=== PATIENT | male | born 1940 | race Caucasian/White ===

== ENCOUNTER 2016-03-08 16:55 | Inpatient (IN) | payer OTHER ==
--- NOTE | 2016-03-08 17:32 | CPEKG ---
Heart Rate: 80 RR Interval: 750 P-R Interval: 144 QRSD Interval: 94 QT Interval: 392 QTC Interval: 453 P [place]: 49 QRS [place]: -37 T Wave [place]: -77 EKG Severity - ABNORMAL ECG - EKG Impression: SINUS RHYTHM EKG Impression: LEFT AXIS DEVIATION EKG Impression: NONSPECIFIC T ABNORMALITIES, DIFFUSE LEADS Electronically Signed By: Juana Beck 08-Mar-2016 21:53:05
[2016-03-08] MEDS ORDERED: NS 1,000 ML IV ONE ×2 (17:44→20:23)
[2016-03-08 17:51] LABS: % IMMATURE GRANULYOCYTES 0.7 % (0.0-1.1); ABSOLUTE IMMATURE GRANULOCYTES 0.16 10^3/uL (0.00-0.10); ADD DIFF? NO; ADD MORPH? NO; ADD SCAN? NO; ATYPICAL LYMPHOCYTE FLAG 40 (0-99); FRAGMENT RBC FLAG 0 (0-99); HEMATOCRIT 54.3 % (40.0-51.0); HEMOGLOBIN 19.8 g/dL (13.7-17.5); LEFT SHIFT FLG 10 (0-99); LIPEMIA HEMOLYSIS FLAG 90 (0-99); MEAN CELL HEMOGLOBIN 31.3 pg (27.9-34.1); MEAN CELL HEMOGLOBIN CONCENTR. 36.5 g/dL (32.4-36.7); MEAN CELL VOLUME 85.9 fL (81.5-99.8); MEAN PLATELET VOLUME 9.5 fL (8.7-11.7); PLATELET CLUMPS FLAG 10 (0-99); PLATELET COUNT 194 10^3/uL (150-400); RED BLOOD CELL COUNT 6.32 10^6/uL (4.40-6.38); RED CELL DISTRIBUTION WIDTH 14.5 % (11.5-15.2)
--- NOTE | 2016-03-08 17:51 | EDPHY ---
H & P Time Seen by Provider: 03/08/16 17:23 HPI/ROS: CHIEF COMPLAINT: rectal bleeding/colitis HISTORY OF PRESENT ILLNESS: Patient is a 75-year-old male with a history high cholesterol who presents to the emergency department with a diagnosis colitis and rectal bleeding. Patient's symptoms started last after eating lunch at the [facility]. He initially developed nausea. Later that night he developed bloody diarrhea. He has had increasing weakness over the past few days. On he went to urgent care. There he had a CT scan. This showed colitis and he was started on Cipro and Flagyl. Over the weekend he has had ongoing rectal bleeding which seems to be worsening. He has had nausea with no vomiting. He has no significant abdominal cramping or pain. Patient states that when he has episodes of rectal bleeding he has near syncopal episodes. He has stool in the bathroom floor to not faint. He has not sustained any trauma. REVIEW OF SYSTEMS: Patient is blind in his right eye. Otherwise my complete review of systems is negative except as mentioned in the HPI. Past Medical/Surgical History: Includes recently diagnosed colitis, juvenile glaucoma and high cholesterol Past surgical history: Numerous eye surgeries Social history: The patient is . He does not smoke or use alcohol. Smoking Status: Never smoked Physical Exam: Vitals noted GENERAL: No acute distress, alert. HEENT: Right eye opaque, normal pharynx, no signs of dehydration. NECK: No thyromegaly, no lymphadenopathy, supple. RESPIRATORY: Clear to auscultation bilaterally, no rales, rhonchi or wheezing. CVS: Regular rate and rhythm, no rubs, murmurs, or gallops. ABDOMEN: Soft, minimal left lower quadrant tenderness palpation with no rebound or guarding, nondistended, no organomegaly. BACK: Normal to inspection, no CVA tenderness. SKIN: Normal color, no rash, warm, dry. No pallor. EXTREMITIES: No pedal edema, no calf tenderness, no joint swelling. NEURO/PSYCH: Alert and oriented, normal mood and affect, normal motor sensory exam. Constitutional: Initial Vital Signs Temperature (C) 36.5 C 03/08/16 17:07 Heart Rate 89 03/08/16 17:07 Respiratory Rate 03/08/16 17:07 Blood Pressure 104/86 H 03/08/16 17:07 O2 Sat (%) 91 L 03/08/16 17:07 O2 Delivery Mode Room Air Allergies/Adverse Reactions: No Known Allergies Allergy (Unverified 03/08/16 17:07) Home Medications: Medication Instructions Recorded Aspirin [Aspirin 81mg (OTC)] 81 mg PO DAILY 12/19/14 Loratadine [Claritin 10 mg] 10 mg PO DAILY 12/19/14 Multivitamin [Multi-Day Vitamins] 1 each PO 12/19/14 Simvastatin [Zocor] 20 mg PO 12/19/14 Tumeric 12/19/14 Medical Decision Making ED Course/Re-evaluation: In the emergency department I discussed possible etiologies with the patient. Of note, I discussed the patient with Dr. Piña prior to patient's arrival. She recommends patient be admitted. I discussed the plan with the patient. I answered all his questions. Laboratory studies ordered. The patient was given normal saline 1 L IV for hydration. I reviewed the patient's CT imaging from 03/05/2016. This showed colitis from the cecum through the mid to distal transverse colon. Patient is an elevated white count 46912. Hematocrit is elevated 54. Chemistry panel unremarkable. Patient's coags are unremarkable. Differential Diagnosis: My differential includes but is not limited to colitis, diverticulitis, abscess , perforation, obstruction, internal hemorrhoid, external hemorrhoid, malignancy , infection - Data Points Laboratory Results: Laboratory Results 03/08/16 17:30 03/08/16 17:30 03/08/16 17:30 WBC 21.54 H 10^3/uL (3.80-9.50) RBC 6.32 10^6/uL (4.40-6.38) Hgb 19.8 H g/dL (13.7-17.5) Hct 54.3 H % (40.0-51.0) MCV 85.9 fL (81.5-99.8) MCH 31.3 pg (27.9-34.1) MCHC 36.5 g/dL (32.4-36.7) RDW 14.5 % (11.5-15.2) Plt Count 194 10^3/uL (150-400) MPV 9.5 fL (8.7-11.7) Neut % (Auto) 79.8 H % (39.3-74.2) Lymph % (Auto) 7.9 L % (15.0-45.0) [place] % (Auto) 11.4 % (4.5-13.0) Eos % (Auto) 0.0 L % (0.6-7.6) Baso % (Auto) 0.2 L % (0.3-1.7) Nucleat RBC Rel Count 0.0 % (0.0-0.2) Absolute Neuts (auto) 17.16 H 10^3/uL (1.70-6.50) Absolute Lymphs (auto) 1.71 10^3/uL (1.00-3.00) Absolute Monos (auto) 2.46 H 10^3/uL (0.30-0.80) Absolute Eos (auto) 0.00 L 10^3/uL (0.03-0.40) Absolute Basos (auto) 0.05 10^3/uL (0.02-0.10) Absolute Nucleated RBC 0.00 10^3/uL (0-0.01) Immature Gran % 0.7 % (0.0-1.1) Immature Gran # 0.16 H 10^3/uL (0.00-0.10) PT 16.3 H SEC (12.0-15.0) INR 1.31 H (0.83-1.16) APTT 24.4 SEC (23.0-38.0) Sodium 134 mEq/L (134-144) Potassium 4.1 mEq/L (3.5-5.2) Chloride 99 mEq/L (97-110) Carbon Dioxide 19 L mEq/l (22-31) Anion Gap 16 mEq/L (8-16) BUN 71 H mg/dL (7-23) Creatinine 1.4 H mg/dL (0.7-1.3) Estimated GFR 50 Glucose 145 H mg/dL (70-100) Calcium 8.7 mg/dL (8.5-10.4) Medications Given: Discontinued Medications Sodium Chloride (Ns) 1,000 mls @ 0 mls/hr IV ONCE ONE PRN Reason: Wide Open Stop: 03/08/16 17:45 Last Admin: 03/08/16 18:00 Dose: 1,000 mls Departure - Departure Disposition: [facility] Acute Clinical Impression: Hematochezia, Non-specific colitis Leukocytosis Qualifiers: Leukocytosis type: other Qualifier Code: (D72.828) Other elevated white blood cell count Condition: Good Referrals: Zohreh Loza MD [Primary Care Provider] - As per Instructions
[2016-03-08 17:56] LABS: ANION GAP 16 mEq/L (8-16); CALCIUM 8.7 mg/dL (8.5-10.4); CARBON DIOXIDE 19 mEq/l (22-31); CHLORIDE 99 mEq/L (97-110); CREATININE 1.4 mg/dL (0.7-1.3); GLOMERULAR FILTRATION RATE 50; GLUCOSE 145 mg/dL (70-100); POTASSIUM 4.1 mEq/L (3.5-5.2); SODIUM 134 mEq/L (134-144)
[2016-03-08 18:02] LABS: APTT 24.4 SEC (23.0-38.0); INR 1.31 (0.83-1.16); PROTIME(PATIENT) 16.3 SEC (12.0-15.0)
[2016-03-08] MEDS ORDERED: ACETAMINOPHEN 325 MG TAB PO PRN (20:23)
[2016-03-08] MEDS ORDERED: levOFLOXACIN 500 MG/DEXTROSE 100 ML IV SCH (20:30)
[2016-03-08] MEDS ORDERED: levOFLOXACIN 500 MG/DEXTROSE/100 ML BAG IV ONE (20:40)
--- NOTE | 2016-03-08 21:01 | GHP ---
[f rep st] HISTORY AND PHYSICAL DATE OF ADMISSION: 03/08/2016 CHIEF COMPLAINT: Bloody diarrhea. HISTORY OF PRESENT ILLNESS: This is a 75-year-old male with no significant past medical history who presented to the Emergency Department with bloody stools. The patient states that he last had a regular meal on Wednesday at lunchtime at the [facility]. Af ter eating, he said he lost his appetite and had some low-grade subjective temperatures, as well as s ome diarrhea that started on Wednesday night. On Wednesday, the nausea and diarrhea worsened. He states that whenever he would eat or drink anythi ng he would have bright red bloody stools. He feels faint with standing. He denies any chest pain or shortness of breath. He has not had this happen to him before. He was seen at [facility] on 03/05/2016, at which time stool studies were don e that were negative. A CT of the abdomen and pelvis was done at that time and that revealed colitis . He was subsequently started on Cipro and Flagyl. Since starting antibiotics, he has not improved. PAST MEDICAL HISTORY: Juvenile cataract, BPH. PAST SURGICAL HISTORY: Multiple eye surgeries. HOME MEDICATIONS: Reviewed. Refer to [facility] for details. ALLERGIES: No known drug allergies. SOCIAL HISTORY: The patient lives independently. He denies any alcohol, tobacco, or illicit drug us e. FAMILY HISTORY: Reviewed and noncontributory. REVIEW OF SYSTEMS: A comprehensive 10-point review of systems was done and was negative, except for as mentioned in the HPI. PHYSICAL EXAM: VITAL SIGNS: Blood pressure 137/91, heart rate 84, respiratory rate 16, O2 saturatio n 92% on 2 L, temperature afebrile. GENERAL: In no acute distress. HEAD: Normocephalic, atraumati c. Eyes: Left pupil is reactive to light. Right pupil is obscured by cataract. NECK: Supple. No lymphadenopathy. CARDIOVASCULAR: S1, S2. No murmurs, rubs, clicks, gallops, or JVD. No lower ext remity edema. PULMONARY: Lungs are clear. No wheezes, rales, or rhonchi. ABDOMEN: Soft, nontende r, nondistended. No guarding or rebound tenderness. Normoactive bowel sounds. No hepatosplenomegal y. EXTREMITIES: No clubbing or cyanosis. NEURO: Cranial nerves II through XII grossly intact. No focal motor or sensory deficits. SKIN: Clear. No rashes. DIAGNOSTICS: 1. WBC is 21.54, hemoglobin 19.8, hematocrit 54.3, platelets 194. INR 1.31. 2. Sodium 134, potassium 4.1, chloride 99, CO2 19, BUN 71, creatinine 1.4, glucose 145. 3. CT of the abdomen and pelvis done on 03/05/2016 revealed colitis from the cecum through the mid-t o-distal transverse colon. 4. Stool studies were negative for an infectious cause. Serology was negative for Clostridium diffi cile. ASSESSMENT AND PLAN: This is a 75-year-old male presenting with: 1. Bloody diarrhea and anorexia. Suspect bacterial colitis. Plan: I discussed the case with Dr. Renetta Giron who is on-call for GI who will see the patient in the morning. For now, will treat him saldana pportively with IV fluids. For now, will continue his antibiotics, but will change to IV Levaquin an d Flagyl. Will repeat stool studies, as well as that of ova and parasite. 2. Severe dehydration and hemoconcentration with likely secondary polycythemia. Plan: Continue wit h IV fluids and monitor. 3. Acute kidney injury, likely due to above, with elevated BUN. Plan: As per above. The patient will be admitted to the hospital under inpatient status. /[id number]/MODL
[2016-03-08] MEDS: D5W 1/2 NS W/ 20 KCl/L 1,000 ML IV SCH (21:36)
[2016-03-08] MEDS ORDERED: ZOLPIDEM TARTRATE 5 MG TAB PO ONE (22:23)
[2016-03-08] MEDS ORDERED: TAMSULOSIN HCL 0.4 MG CAP PO ONE (22:23)
[2016-03-09] MEDS: D5W 1/2 NS W/ 20 KCl/L 1,000 ML IV SCH (05:39)
[2016-03-09 08:44] LABS: ALANINE AMINOTRANSFERASE 33 IU/L (21-72); ALBUMIN 2.4 g/dL (3.5-5.0); ALKALINE PHOSPHATASE 54 IU/L (38-126); ANION GAP 9 mEq/L (8-16); ASPARTATE AMINOTRANSFERASE 28 IU/L (17-59); BILIRUBIN,TOTAL 0.9 mg/dL (0.1-1.4); CALCIUM 7.8 mg/dL (8.5-10.4); CARBON DIOXIDE 21 mEq/l (22-31); CHLORIDE 104 mEq/L (97-110); GLOMERULAR FILTRATION RATE > 60; GLUCOSE 168 mg/dL (70-100); SODIUM 134 mEq/L (134-144); TOTAL PROTEIN 4.9 g/dL (6.3-8.2)
--- NOTE | 2016-03-09 10:36 | HOSPPROG ---
Hospitalist Progress Note Assessment/Plan: 75 yo M w cataracts here w colitis, bloody diarrhea, GREGORIO GREGORIO: cr improved w IVF dc IVF colitis: seen on CT 03/05 (images interp by me) now able to eat w no immeidate diarrhea but also distended cdiff and stool cx neg 1. continue abx 2. advance to full liquids 3. add simethicone proph: hold on lmwh given bloody diarrhea leukocytosis: suspect 2/2 colonic process dispo: obs; home if tolerates full liquids, not clear that he will Subjective: no diarrhea. bloated Objective: Vital Signs Temp Pulse Resp BP Pulse Ox 36.8 C 81 18 120/83 H 94 03/09/16 08:00 03/09/16 08:00 03/09/16 08:00 03/09/16 08:00 03/09/16 08:00 Laboratory Results 03/09/16 08:17 03/08/16 03/09/16 03/10/16 05:59 05:59 05:59 Intake Total 2150 Balance 2150 PT 16.3 SEC (12.0-15.0) H 03/08/16 17:30 INR 1.31 (0.83-1.16) H 03/08/16 17:30 - Physical Exam Constitutional: no apparent distress, appears nourished Eyes: anicteric sclera, No PERRL Ears, Nose, Mouth, Throat: moist mucous membranes, hearing normal Cardiovascular: regular rate and rhythym, no murmur, rub, or gallop, systolic murmur Respiratory: no respiratory distress, no rales or rhonchi Gastrointestinal: other (distended, very hypoactive bowel sounds) Genitourinary: No hoyt in urethra Skin: warm, normal color Musculoskeletal: full muscle strength Neurologic: AAOx3 ICD10 Worksheet Patient Problems: Problems Problem Status Diagnosed Colitis Acute Hematochezia Acute Leukocytosis Acute
--- NOTE | 2016-03-09 12:49 | GCON ---
[f rep st] CONSULTATION DATE OF CONSULTATION: 03/09/2016 REFERRING PHYSICIAN: Patrick Benavidez DO REASON FOR CONSULTATION: Colitis. Dear Dr. Benavidez: Thank you very kindly for asking me to evaluate Mr. Gabriel for new onset bloody diarrhea. He has be en sick since last Wednesday when he ate at the [facility]. A few hours after eating the meal, he developed nausea and upper abdominal discomfort, along with subjective low-grade fever. He developed diarrhea that evening that progressed to be quite severe, frequent, watery, and ultimately bloody. He presented to his primary care provider who performed stool studies, which were negative through [facility] on March 05. Ultimately, a CT scan of the abdomen and pelv is was performed for further evaluation of the abdominal discomfort, diarrhea, and bleeding, which re vealed diffuse colonic thickening from the cecum to about the midtransverse colon, without colonic di stention or pericolonic abscess. There was no intraabdominal free fluid. The remaining bowel loops were unremarkable. He has been feeling weak, lightheaded, and dizzy and was admitted for further marielena luation. He has no significant previous past medical history, and, of note, he was started on ciprof loxacin and Flagyl after the CT scan findings on March 05. PAST MEDICAL HISTORY: Benign prostatic hypertrophy. Right eye juvenile cataract. Personal history of colon polyps. PAST SURGICAL HISTORY: Numerous eye surgeries on the right eye to correct the cataract. Previous co lonoscopy 2 years ago through [facility] that he says had some small polyps, but were oth erwise normal. SOCIAL HISTORY: The patient lives independently. No tobacco. No alcohol. He is retired. FAMILY HISTORY: Negative for inflammatory bowel disease. MEDICATIONS: Include recently ciprofloxacin and Flagyl. He has been placed on Levaquin and Flagyl o n hospitalization. He is receiving Phenergan, fluids, and Tylenol on an as-needed basis. ALLERGIES: None known. REVIEW OF SYSTEMS: CONSTITUTIONAL: Subjective fevers, malaise, fatigue. HEENT: No headache. 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 No difficulty swallowing. No rhinorrhea. No e pistaxis. NECK: No neck pain. PULMONARY: No cough, shortness of breath. CARDIOVASCULAR: No ches t pain or palpitations. GASTROINTESTINAL: This morning he describes feeling bloated with generalize d abdominal discomfort. He feels constipated today and denies having any bowel movements or bleeding since admission. Previous to this, he was having loose frequent bowel movements that were watery wi th small amounts of maroon-colored blood. RHEUMATOLOGIC: No joint pain or swelling. LYMPHATIC: No lymph node swelling or glandular enlargement. DERMATOLOGIC: Negative for jaundice or rash. PSYCHI ATRIC: No depression, anxiety, or insomnia. GENITOURINARY: He does report some difficulty with ful l bladder evacuation and urinary hesitancy, but this is unchanged. No dysuria or hematuria. No flan k pain. PHYSICAL EXAM: VITAL SIGNS: Blood pressure 120/83, with a heart rate of 81, oxygenation is 94% on r oom air. Temperature is 37.1, T-max 36.8 T current. GENERAL: Elderly male, in no acute distress. Alert and appropriate and able to provide his own history. HEENT: Right eye cataract. The left eye is normal. Pupil equal round and reactive. Extraocular movements intact. Sclerae anicteric. Neck supple. No jugular venous distention. No cervical adenopathy. Oropharynx is clear. Nares are nor mal without epistaxis. NECK: Supple. No jugular venous distention or carotid bruits. LUNGS: [place] r to auscultation bilaterally. CARDIOVASCULAR: Regular rate and rhythm, without murmur, rub, or gal lop. ABDOMEN: Mildly distended, somewhat tympanic centrally. Bowel sounds are hypoactive. No tend erness, rebound, guarding, ascites, or organomegaly. No herniation. No abdominal bruit. EXTREMITIE S: Normal gait and station. No joint deformity. No cyanosis or clubbing. No palmar erythema. SKI N: Warm and dry, without jaundice, rash, or lesions. NEURO: Alert to person, place, and time. Nor mal mood and affect. Gait and station are normal. Nonfocal motor exam. DATA REVIEWED: Includes a white count of 21.5, hematocrit 54.3, platelets are 194, INR 1.3 with a PT of 16.3. Sodium 134, potassium 4, chloride 104, bicarbonate 21, BUN 58, creatinine 1.02. This has improved from a BUN of 71 and a creatinine of 1.4 yesterday. AST is 28, ALT 33, alkaline phosphatase 54, total protein is 4.9, with an albumin of 2.4. C. difficile PCR on March 05 is negative. A stool culture on March 05, 2016, is negative for pathogens. Shiga toxins 1 and 2 are negative. Imaging includes a CT scan of the abdomen and pelvis on March 05, 2016. The lung bases are clear. The liver is normal. The bile ducts and gallbladder are unremarkable. The pancreas is normal. Th e spleen is absent (I did not receive a history of splenectomy). The adrenal glands and kidneys are normal. Urinary bladder is unremarkable. No free fluid in the pelvis. Small bowel loops are normal . There is inflammatory change of the cecum, ascending colon, hepatic flexure, and transverse colon without abscess. The prostate is enlarged. IMPRESSION: 1. Abdominal pain. 2. Fever. 3. Diarrhea, most likely infectious. 4. Hematochezia, likely due to infectious colitis, based on the CT imaging of thickening. 5. Abnormal CT documenting colonic thickening. 6. Dehydration. 7. Leukocytosis, likely due to infectious colitis. RECOMMENDATIONS: 1. The differential for his colitis includes infectious and inflammatory etiologies, as well as the possibility for ischemia, although this is clinically with somewhat less likely given his history. 2. Reasonable to continue antibiotics, especially if he indeed has had splenectomy. His spleen is a bsent on CT. I will need to review with Mr. Gabriel whether he has had a splenectomy, because I did not receive this history in his interview. If he has indeed had splenectomy then he is at [facility] for certain types of infectious colitis such as Salmonella. 3. I will send repeat stool studies, if he can provide them. He has not had a bowel movement since admission. I would recommend repeating both standard bacterial stool culture, E coli 0157:H7, (this was reportedly performed at the Urgent Care, although I do not have the result of those). It would b e important to verify this is negative, as antibiotics can be contraindicated in this particular ente rohemorrhagic E coli. 4. We will also repeat C difficile PCR. 5. For now, it is not unreasonable to continue antibiotics as they had been started on the , and I would recommend a total of 7 days. Obviously, these will need to be interrupted if his 0157 antig en is positive, although we may not be able to determine this currently if he is not able to provide a stool specimen. 6. I would not recommend colonoscopy to evaluate the thickening in the acute setting, as this seems to be clinically either infectious or possibly ischemic colitis and less likely an inflammatory bowel process, especially in the setting that he has had a colonoscopy 2 years ago that did not reveal inf lammatory bowel disease and was significant only for small polyps. 7. If, however, he does not improve clinically within the next several days, then a colonoscopy can be considered for assistance with diagnostic understanding of his disease. 8. IV fluid hydration. 9. He may advance his diet as tolerated. 10. Monitor CBC to show improvement in the leukocytosis. 11. Further recommendations to follow. Thank you for allowing me to be involved in his care. He is a patient in the [facility], and I will have Dr. Benoit follow up with him tomorrow. /[id number]/MODL
[2016-03-09] MEDS ORDERED: NON-FORMULARY NEW DRUG (Loratadine [Claritin 10 Mg] 10 MG) PO SCH (13:15)
[2016-03-09] MEDS: CETIRIZINE 10 MG TAB PO SCH (15:25)
[2016-03-09] MEDS: ASPIRIN 81 MG CHEWABLE TAB PO SCH ×2 (15:25→20:05)
[2016-03-09] MEDS: DUTASTERIDE 0.5 MG CAP PO SCH (20:05)
[2016-03-09] MEDS: ATORVASTATIN CALCIUM 10 MG TAB PO SCH (20:05)
[2016-03-09] MEDS: TAMSULOSIN HCL 0.4 MG CAP PO SCH (20:05)
[2016-03-09] MEDS: ZOLPIDEM TARTRATE 5 MG TAB PO PRN (20:28)
[2016-03-09] MEDS ORDERED: levOFLOXACIN 500 MG/DEXTROSE 100 ML IV SCH (21:00)
[2016-03-09] MEDS ORDERED: NON-FORMULARY NEW DRUG (Simvastatin [Simvastatin] 20 MG) PO SCH (21:00)
[2016-03-10] MEDS: CHOLECALCIFEROL VIT D3 1,000 UNITS TAB PO SCH (08:57)
[2016-03-10] MEDS: MULTIVITAMINS 1 EACH TAB PO SCH (08:57)
[2016-03-10] MEDS: ASPIRIN 81 MG CHEWABLE TAB PO SCH ×2 (08:57→20:53)
[2016-03-10] MEDS ORDERED: MULTIVITAMIN PO SCH (09:00)
[2016-03-10] MEDS: CETIRIZINE 10 MG TAB PO SCH (09:03)
[2016-03-10] MEDS ORDERED: CALCIUM CARBONATE 500 MG CHEWABLE TAB PO PRN (09:35)
[2016-03-10] MEDS: SIMETHICONE 80 MG TAB CHEW PO SCH ×4 (10:20→22:47)
--- NOTE | 2016-03-10 11:24 | HOSPPROG ---
Hospitalist Progress Note Assessment/Plan: 75 yo M w cataracts here w colitis, bloody diarrhea, GREGORIO GREGORIO: cr improved w IVF dc IVF colitis: seen on CT 03/05 now able to eat w no immeidate diarrhea but also distended cdiff and stool cx neg 1. continue abx 2. advance to full liquids 3. add simethicone still w bloating add dicyclomine proph: hold on lmwh given bloody diarrhea leukocytosis: suspect 2/2 colonic process repeat labs today no spleen on CT: denies splenectomy dispo: inpatient Subjective: drinking, no stool, minimal flatus. uncomfortable Objective: Vital Signs Temp Pulse Resp BP Pulse Ox 36.8 C 82 16 132/89 H 90 L 03/10/16 07:22 03/10/16 07:22 03/10/16 07:22 03/10/16 07:22 03/10/16 07:22 Laboratory Results 03/09/16 08:17 03/09/16 03/10/16 03/11/16 05:59 05:59 05:59 Intake Total 2150 845 Output Total 450 Balance 2150 395 PT 16.3 SEC (12.0-15.0) H 03/08/16 17:30 INR 1.31 (0.83-1.16) H 03/08/16 17:30 - Physical Exam Constitutional: no apparent distress, appears nourished Eyes: anicteric sclera, EOMI, No PERRL Ears, Nose, Mouth, Throat: moist mucous membranes, hearing normal Cardiovascular: regular rate and rhythym, no murmur, rub, or gallop, No tachycardia Respiratory: no respiratory distress, no rales or rhonchi Gastrointestinal: distension, other (improved bowel sounds from yesterday), No guarding, No rebound Genitourinary: No hoyt in urethra Skin: warm, normal color Musculoskeletal: full muscle strength, no muscle tenderness ICD10 Worksheet Patient Problems: Problems Problem Status Diagnosed Colitis Acute Hematochezia Acute Leukocytosis Acute
[2016-03-10] MEDS: DICYCLOMINE 10 MG CAP PO SCH ×3 (11:43→21:15)
[2016-03-10 12:01] LABS: ABSOLUTE NRBC COUNT 0.02 10^3/uL (0-0.01); ADD DIFF? YES; ADD MORPH? NO; ADD SCAN? NO; ATYPICAL LYMPHOCYTE FLAG 30 (0-99); FRAGMENT RBC FLAG 0 (0-99); HEMATOCRIT 49.3 % (40.0-51.0); HEMOGLOBIN 17.3 g/dL (13.7-17.5); LEFT SHIFT FLG 30 (0-99); LIPEMIA HEMOLYSIS FLAG 90 (0-99); MEAN CELL HEMOGLOBIN 31.2 pg (27.9-34.1); MEAN CELL HEMOGLOBIN CONCENTR. 35.1 g/dL (32.4-36.7); NRBC-AUTO% 0.1 % (0.0-0.2); PLATELET CLUMPS FLAG 0 (0-99); PLATELET COUNT 190 10^3/uL (150-400); RED BLOOD CELL COUNT 5.54 10^6/uL (4.40-6.38); RED CELL DISTRIBUTION WIDTH 14.2 % (11.5-15.2)
[2016-03-10 12:15] LABS: ANION GAP 9 mEq/L (8-16); CALCIUM 8.1 mg/dL (8.5-10.4); CARBON DIOXIDE 23 mEq/l (22-31); CHLORIDE 103 mEq/L (97-110); CREATININE 1.1 mg/dL (0.7-1.3); GLOMERULAR FILTRATION RATE > 60; GLUCOSE 157 mg/dL (70-100); POTASSIUM 4.1 mEq/L (3.5-5.2); SODIUM 135 mEq/L (134-144)
[2016-03-10 14:54] LABS: ECHINOCYTES 1+; HOWELL-JOLLY BODIES 1+; PLATELET ESTIMATE ADEQUATE (ADEQ)
[2016-03-10] MEDS: NS 1,000 ML IV SCH (15:37)
--- NOTE | 2016-03-10 17:09 | SOAPPROG ---
SOAP Progress Note Assessment/Plan: Assessment:Patient feels bloated, minimal stool which is not bloody today. Abdomen softly distended but nontender. Patient has not been able to produce a stool specimen for repeat analysis since admission. Taking clear liquids. Plan:Would continue to treat as a severe infectious colitis. If no improvement in bloating by tomorrow morning would get abdominal x-rays. 03/10/16 17:06 Objective: Vital Signs Temp Pulse Resp BP Pulse Ox 36.8 C 84 83 H 148/90 H 90 L 03/10/16 16:40 03/10/16 16:40 03/10/16 16:40 03/10/16 16:40 03/10/16 16:40 Laboratory Results 03/10/16 11:55 03/10/16 11:55 03/09/16 03/10/16 03/11/16 05:59 05:59 05:59 Intake Total 2150 845 Output Total 450 250 Balance 2150 395 -250 PT 16.3 SEC (12.0-15.0) H 03/08/16 17:30 INR 1.31 (0.83-1.16) H 03/08/16 17:30 ICD10 Worksheet Patient Problems: Problems Problem Status Diagnosed Colitis Acute Hematochezia Acute Leukocytosis Acute
[2016-03-10] MEDS: DUTASTERIDE 0.5 MG CAP PO SCH (20:52)
[2016-03-10] MEDS: TAMSULOSIN HCL 0.4 MG CAP PO SCH (20:53)
[2016-03-10] MEDS: ATORVASTATIN CALCIUM 10 MG TAB PO SCH (20:53)
[2016-03-10] MEDS: ZOLPIDEM TARTRATE 5 MG TAB PO PRN (22:32)
[2016-03-11] MEDS: NS 1,000 ML IV SCH (03:00)
[2016-03-11 05:02] LABS: ABSOLUTE NRBC COUNT 0.05 10^3/uL (0-0.01); ADD DIFF? YES; ADD MORPH? NO; ADD SCAN? NO; ATYPICAL LYMPHOCYTE FLAG 30 (0-99); FRAGMENT RBC FLAG 0 (0-99); HEMATOCRIT 47.8 % (40.0-51.0); HEMOGLOBIN 16.8 g/dL (13.7-17.5); LEFT SHIFT FLG 20 (0-99); LIPEMIA HEMOLYSIS FLAG 90 (0-99); MEAN CELL HEMOGLOBIN 31.3 pg (27.9-34.1); MEAN CELL HEMOGLOBIN CONCENTR. 35.1 g/dL (32.4-36.7); MEAN CELL VOLUME 89.2 fL (81.5-99.8); MEAN PLATELET VOLUME 9.7 fL (8.7-11.7); NRBC-AUTO% 0.2 % (0.0-0.2); PLATELET CLUMPS FLAG 0 (0-99); PLATELET COUNT 221 10^3/uL (150-400); RED BLOOD CELL COUNT 5.36 10^6/uL (4.40-6.38); RED CELL DISTRIBUTION WIDTH 14.7 % (11.5-15.2)
[2016-03-11 05:16] LABS: ANION GAP 6 mEq/L (8-16); CALCIUM 7.8 mg/dL (8.5-10.4); CARBON DIOXIDE 20 mEq/l (22-31); CHLORIDE 108 mEq/L (97-110); GLOMERULAR FILTRATION RATE > 60; GLUCOSE 101 mg/dL (70-100); POTASSIUM 4.2 mEq/L (3.5-5.2); SODIUM 134 mEq/L (134-144)
[2016-03-11 05:54] LABS: HOWELL-JOLLY BODIES 1+
[2016-03-11] MEDS: DICYCLOMINE 10 MG CAP PO SCH (07:19)
[2016-03-11 08:48] LABS: PLATELET ESTIMATE ADEQUATE (ADEQ)
[2016-03-11] MEDS: MULTIVITAMINS 1 EACH TAB PO SCH (09:48)
[2016-03-11] MEDS: ASPIRIN 81 MG CHEWABLE TAB PO SCH ×2 (09:48→19:48)
[2016-03-11] MEDS: SIMETHICONE 80 MG TAB CHEW PO SCH ×4 (09:48→20:05)
[2016-03-11] MEDS: CHOLECALCIFEROL VIT D3 1,000 UNITS TAB PO SCH (09:51)
[2016-03-11] MEDS: CETIRIZINE 10 MG TAB PO SCH (10:01)
--- NOTE | 2016-03-11 10:24 | HOSPPROG ---
Hospitalist Progress Note Assessment/Plan: 75 yo M w cataracts here w colitis, bloody diarrhea, GREGORIO GREGORIO: cr improved w IVF dc IVF colitis: seen on CT 03/05 now able to eat w no immeidate diarrhea but also ongoing distension and poor po intake cdiff and stool cx neg 1. continue abx 2. advance to full liquids 3. repeat cdiff 4. check lipase 5. abdominal films proph: hold on lmwh given bloody diarrhea leukocytosis: suspect 2/2 colonic process repeat labs today no spleen on CT: denies splenectomy dispo: inpatient Subjective: still w significant bloating and some pain. some flatus. d/w dr mays Objective: Vital Signs Temp Pulse Resp BP Pulse Ox 36.2 C 83 18 130/31 H 93 03/11/16 08:00 03/11/16 08:00 03/11/16 08:00 03/11/16 08:00 03/11/16 08:00 Laboratory Results 03/11/16 04:24 03/11/16 04:24 03/10/16 03/11/16 03/12/16 05:59 05:59 05:59 Intake Total 733 442 6212 Output Total 450 250 Balance 164 436 6147 PT 16.3 SEC (12.0-15.0) H 03/08/16 17:30 INR 1.31 (0.83-1.16) H 03/08/16 17:30 - Physical Exam Constitutional: no apparent distress, appears nourished Eyes: PERRL, anicteric sclera Ears, Nose, Mouth, Throat: moist mucous membranes, hearing normal Cardiovascular: regular rate and rhythym, no murmur, rub, or gallop Respiratory: no respiratory distress, no rales or rhonchi Gastrointestinal: distension, other (hypoactive but present bowel sounds), No guarding, No rebound Genitourinary: No hoyt in urethra Skin: warm, normal color Musculoskeletal: full muscle strength ICD10 Worksheet Patient Problems: Problems Problem Status Diagnosed Colitis Acute Hematochezia Acute Leukocytosis Acute
[2016-03-11] MEDS: HYDROmorphONE/DILAUDID 1 MG/ML SYR IVP PRN ×3 (12:01→19:34)
[2016-03-11] MEDS ORDERED: LORazepam 2 MG/ML INJ IVP ONE (12:27)
--- NOTE | 2016-03-11 13:18 | DX ---
Three-way abdomen series 1107 hours. History: Viral gastroenteritis with presumed ileus. Abdominal distention. Findings: Comparison to prior CT study from March 05, 2016. There is moderate gaseous distention associated with large bowel loops as well as mild gaseous disten tion of small bowel loops with air-fluid levels identified. There is no evidence of mass or free air. No significant calcifications are seen. Osseous structures appear to be intact. PA chest x-ray: There is poor inspiration with compressive changes at the lung bases. Heart size and pulmonary vasculature are normal. There is no consolidation, effusion, or pneumothorax. Impression: 1. Moderate gaseous distention of large bowel with mild gaseous distention of small bowel loops sugge stive of diffuse ileus. 2. Poor inspiration with compressive atelectatic change at the lung bases.
--- NOTE | 2016-03-11 13:48 | SOAPPROG ---
SOAP Progress Note Assessment/Plan: Assessment:Patient feels bloated, minimal stool which is not bloody today. Abdomen softly distended but nontender. Patient has not been able to produce a stool specimen for repeat analysis since admission. Taking clear liquids. Plan:Would continue to treat as a severe infectious colitis. If no improvement in bloating by tomorrow morning would get abdominal x-rays. 03/10/16 17:06 03/11/16 13:46 Patient still distended, abdominal films c/w ileus. Trace bowel sounds on exam. Agree with NG decompression. I suspect this is still all infectious in etiology , but if no improvement in next 2 days would have to consider colonoscopy. Objective: Vital Signs Temp Pulse Resp BP Pulse Ox 36.2 C 83 18 130/31 H 93 03/11/16 08:00 03/11/16 08:00 03/11/16 08:00 03/11/16 08:00 03/11/16 08:00 Laboratory Results 03/11/16 04:24 03/11/16 04:24 03/10/16 03/11/16 03/12/16 05:59 05:59 05:59 Intake Total 670 738 1945 Output Total 450 250 Balance 404 684 6650 PT 16.3 SEC (12.0-15.0) H 03/08/16 17:30 INR 1.31 (0.83-1.16) H 03/08/16 17:30 ICD10 Worksheet Patient Problems: Problems Problem Status Diagnosed Colitis Acute Hematochezia Acute Leukocytosis Acute
[2016-03-11] MEDS: DUTASTERIDE 0.5 MG CAP PO SCH (19:48)
[2016-03-11] MEDS: ATORVASTATIN CALCIUM 10 MG TAB PO SCH (19:48)
[2016-03-11] MEDS: TAMSULOSIN HCL 0.4 MG CAP PO SCH (19:48)
[2016-03-11] MEDS: ZOLPIDEM TARTRATE 5 MG TAB PO PRN (20:00)
[2016-03-12] MEDS: ASPIRIN 81 MG CHEWABLE TAB PO SCH ×2 (08:33→22:03)
[2016-03-12] MEDS: SIMETHICONE 80 MG TAB CHEW PO SCH ×4 (08:33→22:03)
[2016-03-12] MEDS: MULTIVITAMINS 1 EACH TAB PO SCH (08:33)
[2016-03-12] MEDS: CHOLECALCIFEROL VIT D3 1,000 UNITS TAB PO SCH (08:33)
[2016-03-12] MEDS: CETIRIZINE 10 MG TAB PO SCH (08:34)
--- NOTE | 2016-03-12 08:44 | HOSPPROG ---
Hospitalist Progress Note Assessment/Plan: 75 yo M w cataracts here w colitis, bloody diarrhea, GREGORIO GREGORIO: cr improved w IVF on IVF colitis: seen on CT 03/05 now able to eat w no immediate diarrhea but also ongoing distension and poor po intake cdiff and stool cx neg 1. continue abx 2. advance to full liquids 3. stool studies when he goes ileus: suspect 2/2 severe infectious appreciate GI input continue NGT elevated lipase: modestly elevated (<2xuln) suspect 2/2 abdominal process as opposed to primary problem no pain w eating proph: start LMWH leukocytosis: suspect 2/2 colonic process repeat labs today no spleen on CT: denies splenectomy dispo: inpatient Subjective: yesterday's abd film w ileus (interp by me). case d/w dr mays Objective: Vital Signs Temp Pulse Resp BP Pulse Ox 37.1 C 87 20 111/78 91 L 03/12/16 07:33 03/12/16 07:33 03/12/16 07:33 03/12/16 07:33 03/12/16 07:33 Laboratory Results 03/11/16 04:24 03/11/16 04:24 03/11/16 03/12/16 03/13/16 05:59 05:59 05:59 Intake Total 501 5455 Output Total 250 1200 100 Balance 251 4255 -100 PT 16.3 SEC (12.0-15.0) H 03/08/16 17:30 INR 1.31 (0.83-1.16) H 03/08/16 17:30 - Physical Exam Constitutional: no apparent distress, appears nourished Eyes: PERRL, anicteric sclera Ears, Nose, Mouth, Throat: moist mucous membranes, hearing normal Cardiovascular: regular rate and rhythym, no murmur, rub, or gallop Respiratory: no respiratory distress, no rales or rhonchi Gastrointestinal: distension, other (hypoactive bowel sounds. improved from yesterday), No guarding, No rebound Genitourinary: No hoyt in urethra Skin: warm, normal color Musculoskeletal: full muscle strength, no muscle tenderness Neurologic: AAOx3 ICD10 Worksheet Patient Problems: Problems Problem Status Diagnosed Colitis Acute Hematochezia Acute Leukocytosis Acute
[2016-03-12] MEDS: ENOXAPARIN 40 MG/0.4 ML SYR SC SCH (10:57)
[2016-03-12 12:09] LABS: ABSOLUTE NRBC COUNT 0.04 10^3/uL (0-0.01); ADD DIFF? YES; ADD MORPH? NO; ADD SCAN? NO; ATYPICAL LYMPHOCYTE FLAG 10 (0-99); FRAGMENT RBC FLAG 0 (0-99); HEMATOCRIT 45.4 % (40.0-51.0); HEMOGLOBIN 15.9 g/dL (13.7-17.5); LEFT SHIFT FLG 30 (0-99); LIPEMIA HEMOLYSIS FLAG 90 (0-99); MEAN CELL HEMOGLOBIN 30.9 pg (27.9-34.1); MEAN CELL VOLUME 88.3 fL (81.5-99.8); MEAN PLATELET VOLUME 10.1 fL (8.7-11.7); NRBC-AUTO% 0.2 % (0.0-0.2); PLATELET CLUMPS FLAG 10 (0-99); PLATELET COUNT 240 10^3/uL (150-400); RED BLOOD CELL COUNT 5.14 10^6/uL (4.40-6.38); RED CELL DISTRIBUTION WIDTH 14.7 % (11.5-15.2)
[2016-03-12 12:48] LABS: ACANTHOCYTES 1+; ECHINOCYTES 2+; LARGE PLATELETS PRESENT; PLATELET ESTIMATE ADEQUATE (ADEQ); TOXIC VACUOLIZATION PRESENT
[2016-03-12] MEDS: NS 1,000 ML IV SCH ×2 (13:27→22:02)
[2016-03-12 14:42] LABS: ANION GAP 9 mEq/L (8-16); CALCIUM 7.7 mg/dL (8.5-10.4); CARBON DIOXIDE 18 mEq/l (22-31); CHLORIDE 110 mEq/L (97-110); CREATININE 1.1 mg/dL (0.7-1.3); GLOMERULAR FILTRATION RATE > 60; GLUCOSE 124 mg/dL (70-100); POTASSIUM 4.6 mEq/L (3.5-5.2); SODIUM 137 mEq/L (134-144)
--- NOTE | 2016-03-12 16:53 | SOAPPROG ---
SOAP Progress Note Assessment/Plan: Assessment:Patient feels bloated, minimal stool which is not bloody today. Abdomen softly distended but nontender. Patient has not been able to produce a stool specimen for repeat analysis since admission. Taking clear liquids. Plan:Would continue to treat as a severe infectious colitis. If no improvement in bloating by tomorrow morning would get abdominal x-rays. 03/10/16 17:06 03/11/16 13:46 Patient still distended, abdominal films c/w ileus. Trace bowel sounds on exam. Agree with NG decompression. I suspect this is still all infectious in etiology , but if no improvement in next 2 days would have to consider colonoscopy. 03/12/16 16:50 Doing much better today with NG decompression, started passing flatus. Approx 300 cc drainage today. Some appetite. Still with elevated WBC but no fever. Abdomen softer with new normal bowel sounds. REC: Continue NG drainage overnight, would clamp in AM and then check residual after 4 hours. If residual is minimal would restart CL diet and see if this is tolerated. If so, could go home the following day with diet advanced slowly. Objective: Vital Signs Temp Pulse Resp BP Pulse Ox 37.2 C 83 20 146/83 H 92 03/12/16 16:00 03/12/16 16:00 03/12/16 16:00 03/12/16 16:00 03/12/16 16:00 Laboratory Results 03/12/16 11:55 03/12/16 14:20 03/11/16 03/12/16 03/13/16 05:59 05:59 05:59 Intake Total 501 5455 Output Total 250 1200 100 Balance 251 4255 -100 PT 16.3 SEC (12.0-15.0) H 03/08/16 17:30 INR 1.31 (0.83-1.16) H 03/08/16 17:30 ICD10 Worksheet Patient Problems: Problems Problem Status Diagnosed Colitis Acute Hematochezia Acute Leukocytosis Acute
[2016-03-12] MEDS: ATORVASTATIN CALCIUM 10 MG TAB PO SCH (22:03)
[2016-03-12] MEDS: DUTASTERIDE 0.5 MG CAP PO SCH (22:03)
[2016-03-12] MEDS: TAMSULOSIN HCL 0.4 MG CAP PO SCH (22:03)
[2016-03-12] MEDS: ZOLPIDEM TARTRATE 5 MG TAB PO PRN (22:36)
[2016-03-13 07:55] LABS: ABSOLUTE NRBC COUNT 0.05 10^3/uL (0-0.01); ADD DIFF? YES; ADD MORPH? NO; ADD SCAN? NO; ATYPICAL LYMPHOCYTE FLAG 0 (0-99); FRAGMENT RBC FLAG 0 (0-99); HEMATOCRIT 42.5 % (40.0-51.0); HEMOGLOBIN 14.8 g/dL (13.7-17.5); LEFT SHIFT FLG 30 (0-99); LIPEMIA HEMOLYSIS FLAG 90 (0-99); MEAN CELL HEMOGLOBIN CONCENTR. 34.8 g/dL (32.4-36.7); MEAN CELL VOLUME 89.1 fL (81.5-99.8); MEAN PLATELET VOLUME 9.3 fL (8.7-11.7); NRBC-AUTO% 0.2 % (0.0-0.2); PLATELET CLUMPS FLAG 0 (0-99); PLATELET COUNT 231 10^3/uL (150-400); RED BLOOD CELL COUNT 4.77 10^6/uL (4.40-6.38); RED CELL DISTRIBUTION WIDTH 15.1 % (11.5-15.2)
[2016-03-13 08:58] LABS: ANION GAP 7 mEq/L (8-16); CALCIUM 7.6 mg/dL (8.5-10.4); CARBON DIOXIDE 18 mEq/l (22-31); CHLORIDE 113 mEq/L (97-110); CREATININE 1.1 mg/dL (0.7-1.3); GLOMERULAR FILTRATION RATE > 60; GLUCOSE 124 mg/dL (70-100); POTASSIUM 4.2 mEq/L (3.5-5.2); SODIUM 138 mEq/L (134-144)
[2016-03-13 09:00] LABS: ECHINOCYTES 1+; PLATELET ESTIMATE ADEQUATE (ADEQ); SCHISTOCYTES 1+
[2016-03-13] MEDS: MULTIVITAMINS 1 EACH TAB PO SCH (09:20)
[2016-03-13] MEDS: CHOLECALCIFEROL VIT D3 1,000 UNITS TAB PO SCH (09:20)
[2016-03-13] MEDS: ASPIRIN 81 MG CHEWABLE TAB PO SCH ×2 (09:20→21:21)
[2016-03-13] MEDS: ENOXAPARIN 40 MG/0.4 ML SYR SC SCH (09:20)
[2016-03-13] MEDS: SIMETHICONE 80 MG TAB CHEW PO SCH ×4 (09:21→21:21)
[2016-03-13] MEDS: CETIRIZINE 10 MG TAB PO SCH (09:21)
--- NOTE | 2016-03-13 16:15 | SOAPPROG ---
SOAP Progress Note Assessment/Plan: Assessment:Patient feels bloated, minimal stool which is not bloody today. Abdomen softly distended but nontender. Patient has not been able to produce a stool specimen for repeat analysis since admission. Taking clear liquids. Plan:Would continue to treat as a severe infectious colitis. If no improvement in bloating by tomorrow morning would get abdominal x-rays. 03/10/16 17:06 03/11/16 13:46 Patient still distended, abdominal films c/w ileus. Trace bowel sounds on exam. Agree with NG decompression. I suspect this is still all infectious in etiology , but if no improvement in next 2 days would have to consider colonoscopy. 03/12/16 16:50 Doing much better today with NG decompression, started passing flatus. Approx 300 cc drainage today. Some appetite. Still with elevated WBC but no fever. Abdomen softer with new normal bowel sounds. REC: Continue NG drainage overnight, would clamp in AM and then check residual after 4 hours. If residual is minimal would restart CL diet and see if this is tolerated. If so, could go home the following day with diet advanced slowly. 03/13/16 16:06 Feels a little better today, has had flatus and bowel movements. NG tube was clamped, no residual after 4 hours. Abdomen is still distended, bowel sounds seen less active than yesterday. Tolerating a clear liquid diet but appetite is only fair. I will check abdominal films to confirm ileus is resolved. Objective: Vital Signs Temp Pulse Resp BP Pulse Ox 36.9 C 89 16 135/82 H 95 03/13/16 15:28 03/13/16 15:28 03/13/16 15:28 03/13/16 15:28 03/13/16 15:28 Laboratory Results 03/13/16 07:40 03/13/16 07:40 03/12/16 03/13/16 03/14/16 05:59 05:59 05:59 Intake Total 5455 3210 Output Total 1200 1400 300 Balance 4255 1810 -300 PT 16.3 SEC (12.0-15.0) H 03/08/16 17:30 INR 1.31 (0.83-1.16) H 03/08/16 17:30 ICD10 Worksheet Patient Problems: Problems Problem Status Diagnosed Colitis Acute Hematochezia Acute Leukocytosis Acute
--- NOTE | 2016-03-13 17:34 | DX ---
Portable 2 view abdomen series 1707 hours. History: Followup ileus. Findings: Comparison to March 11, 2016. There is persistent moderate distention of large and small bowel loops. The cecum now measures about 14 cm in diameter. There is no evidence of focal point of obstruction. No free air is seen. There is no evidence of mass or significant calcifications. NG tube tip is in the gastric body. Impression: 1. Stable moderate ileus pattern. There does appear to be increased distention of the cecum.
--- NOTE | 2016-03-13 19:44 | HOSPPROG ---
Hospitalist Progress Note Assessment/Plan: 75 yo M w cataracts here w colitis, bloody diarrhea, GREGORIO GREGORIO: cr improved w IVF on IVF colitis: seen on CT 03/05 now able to eat w no immediate diarrhea cdiff and stool cx neg 1. continue abx 2. advance to full liquids 3. stool studies when he goes ileus: suspect 2/2 severe infectious appreciate GI input continue NGT elevated lipase: modestly elevated (<2xuln) suspect 2/2 abdominal process as opposed to primary problem no pain w eating proph: start LMWH leukocytosis: suspect 2/2 colonic process repeat labs today no spleen on CT: denies splenectomy Subjective: feels better. ngt tube clamped this am. had 2 bm Objective: Vital Signs Temp Pulse Resp BP Pulse Ox 36.9 C 89 16 135/82 H 95 03/13/16 15:28 03/13/16 15:28 03/13/16 15:28 03/13/16 15:28 03/13/16 15:28 Laboratory Results 03/13/16 07:40 03/13/16 07:40 03/12/16 03/13/16 03/14/16 05:59 05:59 05:59 Intake Total 5455 3210 1600 Output Total 1200 1400 300 Balance 4255 1810 1300 PT 16.3 SEC (12.0-15.0) H 03/08/16 17:30 INR 1.31 (0.83-1.16) H 03/08/16 17:30 - Physical Exam Constitutional: no apparent distress, appears nourished, not in pain Ears, Nose, Mouth, Throat: moist mucous membranes Respiratory: no respiratory distress Gastrointestinal: soft, non-tender abdomen, distension, other (decreased bs) Skin: warm Neurologic: AAOx3 Psychiatric: interacting appropriately, not anxious, not encephalopathic, thought process linear ICD10 Worksheet Patient Problems: Problems Problem Status Diagnosed Colitis Acute Hematochezia Acute Leukocytosis Acute
[2016-03-13] MEDS: TAMSULOSIN HCL 0.4 MG CAP PO SCH (21:21)
[2016-03-13] MEDS: NS 1,000 ML IV SCH (21:21)
[2016-03-13] MEDS: DUTASTERIDE 0.5 MG CAP PO SCH (21:22)
[2016-03-13] MEDS: ATORVASTATIN CALCIUM 10 MG TAB PO SCH (21:22)
[2016-03-13] MEDS: ZOLPIDEM TARTRATE 5 MG TAB PO PRN (21:27)
[2016-03-14] MEDS: SIMETHICONE 80 MG TAB CHEW PO SCH ×4 (09:56→21:03)
[2016-03-14] MEDS: MULTIVITAMINS 1 EACH TAB PO SCH (09:56)
[2016-03-14] MEDS: CHOLECALCIFEROL VIT D3 1,000 UNITS TAB PO SCH (09:56)
[2016-03-14] MEDS: ASPIRIN 81 MG CHEWABLE TAB PO SCH ×2 (09:57→21:03)
[2016-03-14] MEDS: ENOXAPARIN 40 MG/0.4 ML SYR SC SCH (09:57)
[2016-03-14] MEDS: CETIRIZINE 10 MG TAB PO SCH (09:57)
--- NOTE | 2016-03-14 15:16 | HOSPPROG ---
Hospitalist Progress Note Assessment/Plan: 75 yo M w cataracts here w colitis, bloody diarrhea, GREGORIO GREGORIO: cr improved w IVF on IVF colitis: seen on CT 03/05 now able to eat w no immediate diarrhea cont abx ileus: suspect 2/2 severe infectious appreciate GI input get another xrau - if better dc ngt and eat elevated lipase: modestly elevated (<2xuln) suspect 2/2 abdominal process as opposed to primary problem no pain w eating proph: start LMWH leukocytosis: suspect 2/2 colonic process repeat labs tomorrow no spleen on CT: denies splenectomy Subjective: feels a lot better. had bm, passing gas Objective: Vital Signs Temp Pulse Resp BP Pulse Ox 36.4 C 81 18 140/76 H 93 03/14/16 08:00 03/14/16 08:00 03/14/16 08:00 03/14/16 08:00 03/14/16 08:00 Laboratory Results 03/13/16 07:40 03/13/16 07:40 03/13/16 03/14/16 03/15/16 05:59 05:59 05:59 Intake Total 3210 2747 Output Total 1400 300 0 Balance 1810 2447 0 PT 16.3 SEC (12.0-15.0) H 03/08/16 17:30 INR 1.31 (0.83-1.16) H 03/08/16 17:30 - Physical Exam Constitutional: no apparent distress, appears nourished, not in pain Eyes: anicteric sclera, EOMI Ears, Nose, Mouth, Throat: moist mucous membranes, hearing normal, ears appear normal Cardiovascular: regular rate and rhythym, no murmur, rub, or gallop Respiratory: no respiratory distress Gastrointestinal: normoactive bowel sounds (more bowel sounds), soft, non- tender abdomen, distension, other, No tenderness Skin: warm Neurologic: AAOx3 Psychiatric: interacting appropriately, not anxious, not encephalopathic, thought process linear ICD10 Worksheet Patient Problems: Problems Problem Status Diagnosed Colitis Acute Hematochezia Acute Leukocytosis Acute
--- NOTE | 2016-03-14 16:41 | DX ---
Two-view abdomen series 1607 hour. History: Followup ileus. Findings: Comparison to March 13, 2016. NG tube has been pulled back slightly. The sidehole is just above the GE junction. The tip of the NG tube is in the gastric fundus. There is slight decrease in gaseous distention of dilated loops of lar ge and small bowel. Air-fluid levels are once again identified in the midabdomen. No free air is seen . No masses are evident. Osseous structures are unchanged. Impression: 1. Slight decrease in gaseous distention of large and small bowel. 2. NG tube has been pulled back slightly with the tip in the gastric fundus.
[2016-03-14] MEDS ORDERED: MELATONIN 3 MG TAB PO PRN (20:15)
[2016-03-14] MEDS: ATORVASTATIN CALCIUM 10 MG TAB PO SCH (21:02)
[2016-03-14] MEDS: DUTASTERIDE 0.5 MG CAP PO SCH (21:04)
[2016-03-14] MEDS: TAMSULOSIN HCL 0.4 MG CAP PO SCH (21:06)
[2016-03-15] MEDS: ONDANSETRON 4 MG/2 ML VIAL IVP PRN (01:07)
[2016-03-15 02:28] LABS: FECES RBC 1+ (NONE SEEN); FECES WBC RARE (NONE SEEN)
[2016-03-15] MEDS: PROMETHAZINE HCL 25 MG/ML VIAL IVP PRN ×2 (03:14→21:02)
[2016-03-15] MEDS: ENOXAPARIN 40 MG/0.4 ML SYR SC SCH (09:02)
[2016-03-15] MEDS: MULTIVITAMINS 1 EACH TAB PO SCH (09:03)
[2016-03-15] MEDS: ASPIRIN 81 MG CHEWABLE TAB PO SCH ×2 (09:03→20:41)
[2016-03-15] MEDS: CHOLECALCIFEROL VIT D3 1,000 UNITS TAB PO SCH (09:03)
[2016-03-15] MEDS: SIMETHICONE 80 MG TAB CHEW PO SCH ×4 (09:03→20:41)
[2016-03-15] MEDS: CETIRIZINE 10 MG TAB PO SCH (09:03)
--- NOTE | 2016-03-15 14:32 | HOSPPROG ---
Hospitalist Progress Note Assessment/Plan: 75 yo M w cataracts here w colitis, bloody diarrhea, GREGORIO GREGORIO: cr improved w IVF on IVF colitis: seen on CT 03/05 now able to eat w no immediate diarrhea cont abx ileus: suspect 2/2 severe infectious appreciate GI input NG tube DC. Will advance diet slowly recheck plain film in the morning elevated lipase: modestly elevated (<2xuln) suspect 2/2 abdominal process as opposed to primary problem no pain w eating proph: start LMWH leukocytosis: suspect 2/2 colonic process repeat labs tomorrow no spleen on CT: denies splenectomy Subjective: had syncopal episode overnight while going to the bathroom. He has had vasovagal episodes like this in the past. He is tolerating full liquids well although appetite decreased. Is having bowel movements. Objective: Vital Signs Temp Pulse Resp BP Pulse Ox 37.2 C 78 18 121/83 H 93 03/15/16 12:37 03/15/16 12:37 03/15/16 12:37 03/15/16 12:37 03/15/16 12:37 Laboratory Results 03/13/16 07:40 03/13/16 07:40 03/14/16 03/15/16 03/16/16 05:59 05:59 05:59 Intake Total 2747 1400 Output Total 300 350 Balance 2447 1050 PT 16.3 SEC (12.0-15.0) H 03/08/16 17:30 INR 1.31 (0.83-1.16) H 03/08/16 17:30 - Physical Exam Constitutional: no apparent distress, appears nourished, not in pain Eyes: anicteric sclera, EOMI Ears, Nose, Mouth, Throat: moist mucous membranes Respiratory: no respiratory distress Gastrointestinal: normoactive bowel sounds, soft, non-tender abdomen, distension Neurologic: AAOx3 Psychiatric: interacting appropriately, not anxious, not encephalopathic, thought process linear ICD10 Worksheet Patient Problems: Problems Problem Status Diagnosed Colitis Acute Hematochezia Acute Leukocytosis Acute
[2016-03-15 16:19] LABS: ABSOLUTE NRBC COUNT 0.04 10^3/uL (0-0.01); ADD DIFF? YES; ADD MORPH? NO; ADD SCAN? NO; ATYPICAL LYMPHOCYTE FLAG 0 (0-99); FRAGMENT RBC FLAG 0 (0-99); HEMATOCRIT 39.3 % (40.0-51.0); HEMOGLOBIN 13.9 g/dL (13.7-17.5); LEFT SHIFT FLG 10 (0-99); LIPEMIA HEMOLYSIS FLAG 90 (0-99); MEAN CELL HEMOGLOBIN 31.2 pg (27.9-34.1); MEAN CELL HEMOGLOBIN CONCENTR. 35.4 g/dL (32.4-36.7); MEAN CELL VOLUME 88.3 fL (81.5-99.8); NRBC-AUTO% 0.2 % (0.0-0.2); PLATELET CLUMPS FLAG 0 (0-99); PLATELET COUNT 258 10^3/uL (150-400); RED BLOOD CELL COUNT 4.45 10^6/uL (4.40-6.38); RED CELL DISTRIBUTION WIDTH 15.7 % (11.5-15.2)
[2016-03-15 16:31] LABS: ANION GAP 5 mEq/L (8-16); CALCIUM 7.6 mg/dL (8.5-10.4); CARBON DIOXIDE 21 mEq/l (22-31); CHLORIDE 111 mEq/L (97-110); CREATININE 1.1 mg/dL (0.7-1.3); GLOMERULAR FILTRATION RATE > 60; GLUCOSE 124 mg/dL (70-100); POTASSIUM 3.8 mEq/L (3.5-5.2); SODIUM 137 mEq/L (134-144)
[2016-03-15 17:25] LABS: O/P CONCENTRATION NONE SEEN (NONE SEEN)
[2016-03-15 17:27] LABS: O/P TRICHROME NONE SEEN (NONE SEEN)
[2016-03-15 18:19] LABS: MICROCYTES 1+; PLATELET ESTIMATE ADEQUATE (ADEQ); SCHISTOCYTES 1+
[2016-03-15 18:20] LABS: MACROCYTES 1+; POLYCHROMASIA 1+
[2016-03-15] MEDS: TAMSULOSIN HCL 0.4 MG CAP PO SCH (20:41)
[2016-03-15] MEDS: DUTASTERIDE 0.5 MG CAP PO SCH (20:41)
[2016-03-15] MEDS: ATORVASTATIN CALCIUM 10 MG TAB PO SCH (20:41)
--- NOTE | 2016-03-16 08:18 | SOAPPROG ---
SOAP Progress Note Assessment/Plan: Assessment:Patient feels bloated, minimal stool which is not bloody today. Abdomen softly distended but nontender. Patient has not been able to produce a stool specimen for repeat analysis since admission. Taking clear liquids. Plan:Would continue to treat as a severe infectious colitis. If no improvement in bloating by tomorrow morning would get abdominal x-rays. 03/10/16 17:06 03/11/16 13:46 Patient still distended, abdominal films c/w ileus. Trace bowel sounds on exam. Agree with NG decompression. I suspect this is still all infectious in etiology , but if no improvement in next 2 days would have to consider colonoscopy. 03/12/16 16:50 Doing much better today with NG decompression, started passing flatus. Approx 300 cc drainage today. Some appetite. Still with elevated WBC but no fever. Abdomen softer with new normal bowel sounds. REC: Continue NG drainage overnight, would clamp in AM and then check residual after 4 hours. If residual is minimal would restart CL diet and see if this is tolerated. If so, could go home the following day with diet advanced slowly. 03/13/16 16:06 Feels a little better today, has had flatus and bowel movements. NG tube was clamped, no residual after 4 hours. Abdomen is still distended, bowel sounds seen less active than yesterday. Tolerating a clear liquid diet but appetite is only fair. I will check abdominal films to confirm ileus is resolved. 03/16/16 08:16 Still distended but tolerating liquid diet and passing semiformed stool. Minimal improvement in cecal distension and WBC over weekend. Abdomen is distended but soft with normal to hyperactive bowel sounds. Will be getting abdominal films today, if no significant improvemtn I would order CT of abd to compare with previous study. If colitis still significant I will proceed to colonoscopy. Objective: Vital Signs Temp Pulse Resp BP Pulse Ox 37.0 C 71 20 122/77 H 92 03/16/16 07:35 03/16/16 07:35 03/16/16 07:35 03/16/16 07:35 03/16/16 07:35 Laboratory Results 03/15/16 16:05 03/15/16 16:05 03/15/16 03/16/16 03/17/16 05:59 05:59 05:59 Intake Total 1400 1000 Output Total 350 1050 Balance 1050 -50 PT 16.3 SEC (12.0-15.0) H 03/08/16 17:30 INR 1.31 (0.83-1.16) H 03/08/16 17:30 ICD10 Worksheet Patient Problems: Problems Problem Status Diagnosed Colitis Acute Hematochezia Acute Leukocytosis Acute
[2016-03-16] MEDS: CHOLECALCIFEROL VIT D3 1,000 UNITS TAB PO SCH (09:45)
[2016-03-16] MEDS: CETIRIZINE 10 MG TAB PO SCH (09:45)
[2016-03-16] MEDS: SIMETHICONE 80 MG TAB CHEW PO SCH ×4 (09:45→21:41)
[2016-03-16] MEDS: ASPIRIN 81 MG CHEWABLE TAB PO SCH ×2 (09:45→21:41)
[2016-03-16] MEDS: MULTIVITAMINS 1 EACH TAB PO SCH (09:45)
[2016-03-16] MEDS: ENOXAPARIN 40 MG/0.4 ML SYR SC SCH (09:54)
--- NOTE | 2016-03-16 12:05 | DX ---
Two-view abdomen series 1139 hours. History: Colitis and rectal bleeding. Possible small bowel distraction. Findings: Comparison to March 14, 2016. There is stable moderate distention of large and small bowel loops. Air-fluid levels are once again n oted at the midabdomen level. There is no free air. There is stable distention of the cecum measuring 12.6 cm in diameter. Osseous structures are unchanged. Impression: 1. Persistent stable gaseous distention of large and small bowel loops suggestive of ileus.
--- NOTE | 2016-03-16 12:14 | HOSPPROG ---
Hospitalist Progress Note Assessment/Plan: 75 yo M w cataracts here w colitis, bloody diarrhea, GREGORIO colitis: seen on CT 03/05 on day 7 of antibiotics ileus: suspect 2/2 severe infectious but somewhat odd presentation continued dilation of cecum with ileus pattern on x-ray will get CT scan of the abdomen pelvis possible colonoscopy discussed with Gastroenterology elevated lipase: modestly elevated (<2xuln) suspect 2/2 abdominal process as opposed to primary problem no pain w eating GREGORIO: cr improved w IVF proph: start LMWH leukocytosis: still somewhat elevated Subjective: feels about the same. continued feeling of bloating. Having some bowel movements. Is tolerating full liquid diet. Objective: Vital Signs Temp Pulse Resp BP Pulse Ox 37.0 C 71 20 122/77 H 92 03/16/16 07:35 03/16/16 07:35 03/16/16 07:35 03/16/16 07:35 03/16/16 07:35 Laboratory Results 03/15/16 16:05 03/15/16 16:05 03/15/16 03/16/16 03/17/16 05:59 05:59 05:59 Intake Total 1400 1000 Output Total 350 1050 Balance 1050 -50 PT 16.3 SEC (12.0-15.0) H 03/08/16 17:30 INR 1.31 (0.83-1.16) H 03/08/16 17:30 X-ray personally viewed interpreted shows no change in ileus with dilated cecum discussed with Dr. Benoit - Physical Exam Constitutional: no apparent distress, appears nourished, not in pain Eyes: anicteric sclera, EOMI Ears, Nose, Mouth, Throat: moist mucous membranes, hearing normal Cardiovascular: regular rate and rhythym, no murmur, rub, or gallop Respiratory: no respiratory distress Gastrointestinal: soft, non-tender abdomen, no palpable masses, distension, other ( decreased bowel sounds) Skin: warm Neurologic: AAOx3 Psychiatric: interacting appropriately, not anxious, not encephalopathic, thought process linear ICD10 Worksheet Patient Problems: Problems Problem Status Diagnosed Colitis Acute Hematochezia Acute Leukocytosis Acute
[2016-03-16] MEDS ORDERED: IOPAMIDOL (ISOVUE-300) 50 ML VIAL IV ONE (14:04)
--- NOTE | 2016-03-16 15:49 | CT ---
CT Scan of the Abdomen and Pelvis (With Contrast) 1426 hours History: Persistent ileus and cecal distention. Technique: Axial computed tomographic images of the abdomen and pelvis were obtained with the unevent ful intravenous administration of 90 mL Isovue-300 contrast. Oral contrast was also administered. Caro ges were reviewed in multiple planes. Dose reduction techniques were utilized. Comparison to prior CT study of March 05, 2016. CT Abdomen and Pelvis Findings: Lung bases: There has been development of bibasilar pleural effusions mild to moderate on the left an d mild on the right with adjacent compressive atelectatic change. Liver: There is a small cyst along anterior aspect left lobe liver medial segment measuring 33 x 15 m m. No significant liver lesion is seen.. Spleen: Previous splenectomy. Gallbladder and Bile Ducts: Normal. Pancreas: Normal. Adrenals: Normal. Kidneys: No obstruction or solid masses. Abdominal Aorta: There are some scattered calcified plaques involving the abdominal aorta with loss o f distal tapering and some mural thrombus distally but no aneurysm. Pelvic structures: The prostate is moderately enlarged measuring 6.8 x 5.5 x 5.6 cm. There is no sign ificant pelvic mass or lymphadenopathy. Bladder: Normal. Bowel Loops: There is moderate thickening associated with the descending colon from just below the s plenic flexure to the junction with the sigmoid. The remainder of the bowel loops within the abdomen and pelvis are normal in thickness. The previously visualized thickening of the cecum and ascending c olon has resolved. Gas is present within mildly prominent large and small bowel compatible with under lying ileus. The large bowel does appear to be somewhat patulous anteriorly. There is no ascites or retroperitoneal lymphadenopathy. There is mild hiatal hernia noted. Skeletal system: Vertebral body heights are well-maintained. There are no significant lytic or scler otic osseous lesions. Impression: 1. Development of thickening of the descending colon compatible with colitis either from infectious o r inflammatory process. The previously visualized thickening of the ascending colon has resolved. 2. Development of bibasilar pleural effusions mild to moderate on the left and mild on the right with adjacent compressive atelectatic change. 3. Incidental cyst within the left lobe liver medial segment anteriorly. 4. Enlarged prostate. 5. Ileus suspected with gas present in large and small bowel loops. 6. Small hiatal hernia.
[2016-03-16] MEDS ORDERED: GOLYTELY 4000 ML BTL PO ONE ×2 (15:57→18:30)
--- NOTE | 2016-03-16 16:00 | SOAPPROG ---
SOAP Progress Note Assessment/Plan: Assessment:Patient feels bloated, minimal stool which is not bloody today. Abdomen softly distended but nontender. Patient has not been able to produce a stool specimen for repeat analysis since admission. Taking clear liquids. Plan:Would continue to treat as a severe infectious colitis. If no improvement in bloating by tomorrow morning would get abdominal x-rays. 03/10/16 17:06 03/11/16 13:46 Patient still distended, abdominal films c/w ileus. Trace bowel sounds on exam. Agree with NG decompression. I suspect this is still all infectious in etiology , but if no improvement in next 2 days would have to consider colonoscopy. 03/12/16 16:50 Doing much better today with NG decompression, started passing flatus. Approx 300 cc drainage today. Some appetite. Still with elevated WBC but no fever. Abdomen softer with new normal bowel sounds. REC: Continue NG drainage overnight, would clamp in AM and then check residual after 4 hours. If residual is minimal would restart CL diet and see if this is tolerated. If so, could go home the following day with diet advanced slowly. 03/13/16 16:06 Feels a little better today, has had flatus and bowel movements. NG tube was clamped, no residual after 4 hours. Abdomen is still distended, bowel sounds seen less active than yesterday. Tolerating a clear liquid diet but appetite is only fair. I will check abdominal films to confirm ileus is resolved. 03/16/16 08:16 Still distended but tolerating liquid diet and passing semiformed stool. Minimal improvement in cecal distension and WBC over weekend. Abdomen is distended but soft with normal to hyperactive bowel sounds. Will be getting abdominal films today, if no significant improvemtn I would order CT of abd to compare with previous study. If colitis still significant I will proceed to colonoscopy. 03/16/16 15:59 CT shows left sided colitis, which is new, and resolution of right sided colitis. This is unusual. I will schedule colonoscopy for tomorrow at 714. Objective: Vital Signs Temp Pulse Resp BP Pulse Ox 37.1 C 88 18 127/69 H 92 03/16/16 12:11 03/16/16 12:11 03/16/16 12:11 03/16/16 12:11 03/16/16 12:11 Laboratory Results 03/15/16 16:05 03/15/16 16:05 03/15/16 03/16/16 03/17/16 05:59 05:59 05:59 Intake Total 1400 1000 Output Total 350 1050 Balance 1050 -50 PT 16.3 SEC (12.0-15.0) H 03/08/16 17:30 INR 1.31 (0.83-1.16) H 03/08/16 17:30 ICD10 Worksheet Patient Problems: Problems Problem Status Diagnosed Colitis Acute Hematochezia Acute Leukocytosis Acute
[2016-03-16] MEDS: TAMSULOSIN HCL 0.4 MG CAP PO SCH (21:41)
[2016-03-16] MEDS: ATORVASTATIN CALCIUM 10 MG TAB PO SCH (21:41)
[2016-03-16] MEDS: DUTASTERIDE 0.5 MG CAP PO SCH (21:41)
[2016-03-17] MEDS: PROMETHAZINE HCL 25 MG/ML VIAL IVP PRN ×2 (01:18→22:29)
[2016-03-17 06:22] LABS: % IMMATURE GRANULYOCYTES 1.5 % (0.0-1.1); ABSOLUTE IMMATURE GRANULOCYTES 0.26 10^3/uL (0.00-0.10); ABSOLUTE NRBC COUNT 0.02 10^3/uL (0-0.01); ADD DIFF? NO; ADD MORPH? NO; ADD SCAN? NO; ATYPICAL LYMPHOCYTE FLAG 0 (0-99); FRAGMENT RBC FLAG 20 (0-99); HEMOGLOBIN 13.9 g/dL (13.7-17.5); LEFT SHIFT FLG 10 (0-99); LIPEMIA HEMOLYSIS FLAG 90 (0-99); MEAN CELL HEMOGLOBIN 31.4 pg (27.9-34.1); MEAN CELL HEMOGLOBIN CONCENTR. 35.6 g/dL (32.4-36.7); MEAN PLATELET VOLUME 9.9 fL (8.7-11.7); NRBC-AUTO% 0.1 % (0.0-0.2); PLATELET CLUMPS FLAG 0 (0-99); PLATELET COUNT 274 10^3/uL (150-400); RED BLOOD CELL COUNT 4.43 10^6/uL (4.40-6.38); RED CELL DISTRIBUTION WIDTH 15.8 % (11.5-15.2)
[2016-03-17 06:50] LABS: ALANINE AMINOTRANSFERASE 43 IU/L (21-72); ALBUMIN 1.8 g/dL (3.5-5.0); ALKALINE PHOSPHATASE 57 IU/L (38-126); ANION GAP 7 mEq/L (8-16); ASPARTATE AMINOTRANSFERASE 55 IU/L (17-59); BILIRUBIN,TOTAL 0.7 mg/dL (0.1-1.4); CALCIUM 7.2 mg/dL (8.5-10.4); CARBON DIOXIDE 21 mEq/l (22-31); CHLORIDE 110 mEq/L (97-110); CREATININE 0.9 mg/dL (0.7-1.3); GLOMERULAR FILTRATION RATE > 60; GLUCOSE 81 mg/dL (70-100); POTASSIUM 3.4 mEq/L (3.5-5.2); SODIUM 138 mEq/L (134-144); TOTAL PROTEIN 4.2 g/dL (6.3-8.2)
[2016-03-17] MEDS ORDERED: PROPOFOL 200 MG/20 ML VIAL ONE ×2 (07:10)
[2016-03-17] MEDS ORDERED: LIDOCAINE 2% 5 ML SDV ONE (07:41)
--- NOTE | 2016-03-17 07:41 | SOAPPROG ---
SOAP Progress Note Assessment/Plan: Assessment:Patient feels bloated, minimal stool which is not bloody today. Abdomen softly distended but nontender. Patient has not been able to produce a stool specimen for repeat analysis since admission. Taking clear liquids. Plan:Would continue to treat as a severe infectious colitis. If no improvement in bloating by tomorrow morning would get abdominal x-rays. 03/10/16 17:06 03/11/16 13:46 Patient still distended, abdominal films c/w ileus. Trace bowel sounds on exam. Agree with NG decompression. I suspect this is still all infectious in etiology , but if no improvement in next 2 days would have to consider colonoscopy. 03/12/16 16:50 Doing much better today with NG decompression, started passing flatus. Approx 300 cc drainage today. Some appetite. Still with elevated WBC but no fever. Abdomen softer with new normal bowel sounds. REC: Continue NG drainage overnight, would clamp in AM and then check residual after 4 hours. If residual is minimal would restart CL diet and see if this is tolerated. If so, could go home the following day with diet advanced slowly. 03/13/16 16:06 Feels a little better today, has had flatus and bowel movements. NG tube was clamped, no residual after 4 hours. Abdomen is still distended, bowel sounds seen less active than yesterday. Tolerating a clear liquid diet but appetite is only fair. I will check abdominal films to confirm ileus is resolved. 03/16/16 08:16 Still distended but tolerating liquid diet and passing semiformed stool. Minimal improvement in cecal distension and WBC over weekend. Abdomen is distended but soft with normal to hyperactive bowel sounds. Will be getting abdominal films today, if no significant improvemtn I would order CT of abd to compare with previous study. If colitis still significant I will proceed to colonoscopy. 03/16/16 15:59 CT shows left sided colitis, which is new, and resolution of right sided colitis. This is unusual. I will schedule colonoscopy for tomorrow at 0715. 03/17/16 07:38 CLN reveals mild colitis pattern in descending colon, but no inflammation in last 30 cm of colon. Unable to reach AC due to issues with distension and anesthesia. Biopsies taken. Colitis pattern does not look like any obvious UC or Crohn or pseudomembranous colitis (C. diff 12/11 negative). Ischemic colitis not suggested on imaging. I will stop his antibiotics and put him on solumedrol 60 mg bid while awaiting biopsy results. Objective: Vital Signs Temp Pulse Resp BP Pulse Ox 36.9 C 75 16 125/79 H 92 03/17/16 06:15 03/17/16 06:15 03/17/16 06:15 03/17/16 06:15 03/17/16 06:15 Laboratory Results 03/17/16 06:00 03/17/16 06:00 03/16/16 03/17/16 03/18/16 05:59 05:59 05:59 Intake Total 1000 Output Total 1050 950 Balance -50 -950 PT 16.3 SEC (12.0-15.0) H 03/08/16 17:30 INR 1.31 (0.83-1.16) H 03/08/16 17:30 ICD10 Worksheet Patient Problems: Problems Problem Status Diagnosed Colitis Acute Hematochezia Acute Leukocytosis Acute
[2016-03-17] MEDS ORDERED: LR 1,000 ML IV ONE (08:02)
[2016-03-17] MEDS ORDERED: LIDOCAINE 1% 5 ML SDV ID PRN (08:02)
[2016-03-17] MEDS: SIMETHICONE 80 MG TAB CHEW PO SCH ×4 (09:52→20:40)
[2016-03-17] MEDS: MULTIVITAMINS 1 EACH TAB PO SCH (09:52)
[2016-03-17] MEDS: methylPREDNISolone SOD SUCC 125 MG/2 ML VIAL IVP SCH ×2 (09:52→20:41)
[2016-03-17] MEDS: CETIRIZINE 10 MG TAB PO SCH (09:52)
[2016-03-17] MEDS: CHOLECALCIFEROL VIT D3 1,000 UNITS TAB PO SCH (09:52)
[2016-03-17] MEDS: ASPIRIN 81 MG CHEWABLE TAB PO SCH ×2 (09:52→20:40)
[2016-03-17] MEDS: ENOXAPARIN 40 MG/0.4 ML SYR SC SCH (09:53)
--- NOTE | 2016-03-17 11:18 | GPN ---
[f rep st] PROCEDURE NOTE PROCEDURE: Colonoscopy with biopsies. INDICATIONS: Mr. Gabriel is a 75-year-old male who was admitted with what was suspected to be infectious colitis. He has developed issues with ileus and pseudo obstruction. A CAT scan done prior to admission showed ascending colon inflammation. CAT scan repeated yesterday shows descending colon inflammation and clearance of the ascending colon inflammation. Colonoscopy is being performed to evaluate. Of note, stool cultures have been negative and repeat C. diff. has been negative. DESCRIPTION OF PROCEDURE: After proper consent was obtained, the patient was placed in the left lateral decubitus position, received IV general anesthesia. The colonoscope was introduced through the anus and rectum, up the left colon, across the transverse colon. The ascending colon could not be intubated due to distention and anesthesiology issues including near aspiration. However, since the ascending colon looked normal on CT scan, it was not paramount that I intubate that area. A nondescript colitis pattern was noted from approximately 30 cm to the distal transverse colon. This did not appear obviously to be ulcerative colitis, Crohn 's disease, ischemic colitis or pseudomembranous colitis. It was biopsied. No other findings are noted. At this point, the instrument was removed. The patient tolerated the procedure well. Was returned to recovery in stable condition. RECOMMENDATIONS: 1. Since infection is no longer likely. I will stop this patient's antibiotics. 2. This colitis might represent a post infectious colitis. I will start the patient on low-dose Solu-Medrol to cover that possibility. 3. I will follow up on the biopsy report and recommend accordingly. /[id number]/MODL MTDD
--- NOTE | 2016-03-17 16:57 | HOSPPROG ---
Hospitalist Progress Note Assessment/Plan: 75 yo M w cataracts here w colitis, bloody diarrhea, GREGORIO colitis: seen on CT 03/05 colonoscopy today showed persistent colitis which did not look infectious GI has stops antibiotics and started steroids awaiting biopsy ileus: suspect 2/2 severe infectious but somewhat odd presentation continued dilation of cecum with ileus pattern on x-ray CT scan yesterday showed improvement of dilation patient is feeling better, passing gas and having bowel movements - will advance diet elevated lipase: modestly elevated (<2xuln) suspect 2/2 abdominal process as opposed to primary problem no pain w eating GREGORIO: cr improved w IVF proph: start LMWH leukocytosis: still somewhat elevated, follow Subjective: feels a lot better than yesterday. Objective: Vital Signs Temp Pulse Resp BP Pulse Ox 36.8 C 74 18 123/68 H 91 L 03/17/16 11:43 03/17/16 11:43 03/17/16 11:43 03/17/16 11:43 03/17/16 11:43 Microbiology 03/15/16 00:55 Stool Culture - Final Stool Laboratory Results 03/17/16 06:00 03/17/16 06:00 03/16/16 03/17/16 03/18/16 05:59 05:59 05:59 Intake Total 1000 1580 Output Total 1050 950 250 Balance -50 -950 1330 PT 16.3 SEC (12.0-15.0) H 03/08/16 17:30 INR 1.31 (0.83-1.16) H 03/08/16 17:30 - Physical Exam Constitutional: no apparent distress, appears nourished, not in pain Eyes: anicteric sclera, EOMI Ears, Nose, Mouth, Throat: moist mucous membranes Cardiovascular: regular rate and rhythym Gastrointestinal: normoactive bowel sounds, soft, non-tender abdomen, no palpable masses, distension ( Better) Skin: warm Neurologic: AAOx3 Psychiatric: interacting appropriately, not anxious, not encephalopathic, thought process linear ICD10 Worksheet Patient Problems: Problems Problem Status Diagnosed Colitis Acute Hematochezia Acute Leukocytosis Acute
[2016-03-17] MEDS: DUTASTERIDE 0.5 MG CAP PO SCH (20:40)
[2016-03-17] MEDS: ATORVASTATIN CALCIUM 10 MG TAB PO SCH (20:40)
[2016-03-17] MEDS: TAMSULOSIN HCL 0.4 MG CAP PO SCH (20:40)
[2016-03-18] MEDS: ONDANSETRON 4 MG/2 ML VIAL IVP PRN (05:53)
[2016-03-18 05:55] LABS: % IMMATURE GRANULYOCYTES 1.5 % (0.0-1.1); ABSOLUTE IMMATURE GRANULOCYTES 0.26 10^3/uL (0.00-0.10); ADD DIFF? NO; ADD MORPH? NO; ADD SCAN? NO; ATYPICAL LYMPHOCYTE FLAG 10 (0-99); FRAGMENT RBC FLAG 20 (0-99); HEMATOCRIT 38.6 % (40.0-51.0); HEMOGLOBIN 13.7 g/dL (13.7-17.5); LEFT SHIFT FLG 10 (0-99); LIPEMIA HEMOLYSIS FLAG 90 (0-99); MEAN CELL HEMOGLOBIN 30.7 pg (27.9-34.1); MEAN CELL HEMOGLOBIN CONCENTR. 35.5 g/dL (32.4-36.7); MEAN CELL VOLUME 86.5 fL (81.5-99.8); MEAN PLATELET VOLUME 8.9 fL (8.7-11.7); PLATELET CLUMPS FLAG 0 (0-99); PLATELET COUNT 317 10^3/uL (150-400); RED BLOOD CELL COUNT 4.46 10^6/uL (4.40-6.38); RED CELL DISTRIBUTION WIDTH 15.6 % (11.5-15.2)
[2016-03-18 06:12] LABS: ALANINE AMINOTRANSFERASE 43 IU/L (21-72); ALBUMIN 2.1 g/dL (3.5-5.0); ALKALINE PHOSPHATASE 60 IU/L (38-126); ANION GAP 7 mEq/L (8-16); ASPARTATE AMINOTRANSFERASE 46 IU/L (17-59); BILIRUBIN,TOTAL 0.4 mg/dL (0.1-1.4); CALCIUM 7.6 mg/dL (8.5-10.4); CARBON DIOXIDE 22 mEq/l (22-31); CHLORIDE 110 mEq/L (97-110); GLOMERULAR FILTRATION RATE > 60; GLUCOSE 130 mg/dL (70-100); POTASSIUM 3.4 mEq/L (3.5-5.2); SODIUM 139 mEq/L (134-144); TOTAL PROTEIN 4.4 g/dL (6.3-8.2)
--- NOTE | 2016-03-18 08:20 | HOSPPROG ---
Hospitalist Progress Note Assessment/Plan: #Nonspecific colitis -endoscopy 03/[address] Benoit. Stopped abx and started empiric IV steroids. Transition to pred at DC -path pending #Leukocytosis -due to steroids #Ileus -resolved. Has had more abdominal distension, but passing gas, no vomiting. -recommended to patient that he eat more bland foods and not advance so quickly -replete K, check phos level #GREGORIO: resolved with IVFs #Hypokalemia -replete #BPH: flomax #HLD: statin #Diet: regular, but expressed he should advance more slowly #DVT px: LMWH #Disp: if improved sxs, hopeful to DC tomorrow Subjective: more abd distension today. No N/V. Passing gas and small stool Objective: Vital Signs Temp Pulse Resp BP Pulse Ox 36.9 C 84 16 130/71 H 91 L 03/18/16 07:15 03/18/16 07:15 03/18/16 07:15 03/18/16 07:15 03/18/16 07:15 Microbiology 03/15/16 00:55 Stool Culture - Final Stool Laboratory Results 03/18/16 05:50 03/18/16 05:50 03/17/16 03/18/16 03/19/16 05:59 05:59 05:59 Intake Total 2055 Output Total 950 350 Balance -950 1705 PT 16.3 SEC (12.0-15.0) H 03/08/16 17:30 INR 1.31 (0.83-1.16) H 03/08/16 17:30 - Physical Exam Constitutional: no apparent distress Eyes: PERRL Ears, Nose, Mouth, Throat: moist mucous membranes, hearing normal Cardiovascular: regular rate and rhythym, no murmur, rub, or gallop Respiratory: no respiratory distress Gastrointestinal: normoactive bowel sounds, soft, non-tender abdomen, distension , other (soft, BS throughout) Genitourinary: no bladder fullness Skin: warm Musculoskeletal: full muscle strength Neurologic: AAOx3, CN II-XII Intact Psychiatric: interacting appropriately ICD10 Worksheet Patient Problems: Problems Problem Status Diagnosed Colitis Acute Hematochezia Acute Leukocytosis Acute
--- NOTE | 2016-03-18 08:28 | SOAPPROG ---
SOAP Progress Note Assessment/Plan: Assessment:Patient feels bloated, minimal stool which is not bloody today. Abdomen softly distended but nontender. Patient has not been able to produce a stool specimen for repeat analysis since admission. Taking clear liquids. Plan:Would continue to treat as a severe infectious colitis. If no improvement in bloating by tomorrow morning would get abdominal x-rays. 03/10/16 17:06 03/11/16 13:46 Patient still distended, abdominal films c/w ileus. Trace bowel sounds on exam. Agree with NG decompression. I suspect this is still all infectious in etiology , but if no improvement in next 2 days would have to consider colonoscopy. 03/12/16 16:50 Doing much better today with NG decompression, started passing flatus. Approx 300 cc drainage today. Some appetite. Still with elevated WBC but no fever. Abdomen softer with new normal bowel sounds. REC: Continue NG drainage overnight, would clamp in AM and then check residual after 4 hours. If residual is minimal would restart CL diet and see if this is tolerated. If so, could go home the following day with diet advanced slowly. 03/13/16 16:06 Feels a little better today, has had flatus and bowel movements. NG tube was clamped, no residual after 4 hours. Abdomen is still distended, bowel sounds seen less active than yesterday. Tolerating a clear liquid diet but appetite is only fair. I will check abdominal films to confirm ileus is resolved. 03/16/16 08:16 Still distended but tolerating liquid diet and passing semiformed stool. Minimal improvement in cecal distension and WBC over weekend. Abdomen is distended but soft with normal to hyperactive bowel sounds. Will be getting abdominal films today, if no significant improvemtn I would order CT of abd to compare with previous study. If colitis still significant I will proceed to colonoscopy. 03/16/16 15:59 CT shows left sided colitis, which is new, and resolution of right sided colitis. This is unusual. I will schedule colonoscopy for tomorrow at 0715. 03/17/16 07:38 CLN reveals mild colitis pattern in descending colon, but no inflammation in last 30 cm of colon. Unable to reach AC due to issues with distension and anesthesia. Biopsies taken. Colitis pattern does not look like any obvious UC or Crohn or pseudomembranous colitis (C. diff 12/11 negative). Ischemic colitis not suggested on imaging. I will stop his antibiotics and put him on solumedrol 60 mg bid while awaiting biopsy results. 03/18/16 08:26 Doing better, feels less distended, tolerated eating an omelet last night. Passing stool and flatus. Abdomen softer,s till distended. Biopsies pending. I would continue to treat as a nonspecific colitis with steroids, which can be switched to prednisone 30 mg qd on discharge. Objective: Vital Signs Temp Pulse Resp BP Pulse Ox 36.9 C 84 16 130/71 H 91 L 03/18/16 07:15 03/18/16 07:15 03/18/16 07:15 03/18/16 07:15 03/18/16 07:15 Microbiology 03/15/16 00:55 Stool Culture - Final Stool Laboratory Results 03/18/16 05:50 03/18/16 05:50 03/17/16 03/18/16 03/19/16 05:59 05:59 05:59 Intake Total 2055 Output Total 950 350 Balance -950 1705 PT 16.3 SEC (12.0-15.0) H 03/08/16 17:30 INR 1.31 (0.83-1.16) H 03/08/16 17:30 ICD10 Worksheet Patient Problems: Problems Problem Status Diagnosed Colitis Acute Hematochezia Acute Leukocytosis Acute
[2016-03-18] MEDS: ENOXAPARIN 40 MG/0.4 ML SYR SC SCH (08:37)
[2016-03-18] MEDS: methylPREDNISolone SOD SUCC 125 MG/2 ML VIAL IVP SCH ×2 (08:37→21:43)
[2016-03-18] MEDS: MULTIVITAMINS 1 EACH TAB PO SCH (08:37)
[2016-03-18] MEDS: ASPIRIN 81 MG CHEWABLE TAB PO SCH ×2 (08:38→21:44)
[2016-03-18] MEDS: CHOLECALCIFEROL VIT D3 1,000 UNITS TAB PO SCH (08:38)
[2016-03-18] MEDS: CETIRIZINE 10 MG TAB PO SCH (08:38)
[2016-03-18] MEDS: SIMETHICONE 80 MG TAB CHEW PO SCH ×4 (08:38→21:43)
[2016-03-18] MEDS ORDERED: POTASSIUM CL 20 MEQ TAB PO ONE (15:03)
[2016-03-18] MEDS: DUTASTERIDE 0.5 MG CAP PO SCH (21:43)
[2016-03-18] MEDS: ATORVASTATIN CALCIUM 10 MG TAB PO SCH (21:44)
[2016-03-18] MEDS: TAMSULOSIN HCL 0.4 MG CAP PO SCH (21:44)
[2016-03-18 22:02] VITALS: O2SAT 92
[2016-03-18] MEDS: PROMETHAZINE HCL 25 MG/ML VIAL IVP PRN (22:09)
[2016-03-19] MEDS: PROMETHAZINE HCL 25 MG/ML VIAL IVP PRN (03:45)
[2016-03-19 07:56] LABS: HEMATOCRIT 32.9 % (40.0-51.0); HEMOGLOBIN 11.9 g/dL (13.7-17.5); MEAN CELL HEMOGLOBIN 31.4 pg (27.9-34.1); MEAN CELL HEMOGLOBIN CONCENTR. 36.2 g/dL (32.4-36.7); MEAN CELL VOLUME 86.8 fL (81.5-99.8); RED BLOOD CELL COUNT 3.79 10^6/uL (4.40-6.38); RED CELL DISTRIBUTION WIDTH 15.9 % (11.5-15.2)
[2016-03-19 08:26] LABS: ANION GAP 3 mEq/L (8-16); CALCIUM 7.4 mg/dL (8.5-10.4); CARBON DIOXIDE 22 mEq/l (22-31); CHLORIDE 114 mEq/L (97-110); CREATININE 0.9 mg/dL (0.7-1.3); GLOMERULAR FILTRATION RATE > 60; GLUCOSE 123 mg/dL (70-100); POTASSIUM 3.6 mEq/L (3.5-5.2); SODIUM 139 mEq/L (134-144)
[2016-03-19 08:32] VITALS: BP 100/87; PULSE 82; RESP 16; TEMP 98.1
[2016-03-19] MEDS: ENOXAPARIN 40 MG/0.4 ML SYR SC SCH (08:34)
[2016-03-19] MEDS: CHOLECALCIFEROL VIT D3 1,000 UNITS TAB PO SCH (08:34)
[2016-03-19] MEDS: methylPREDNISolone SOD SUCC 125 MG/2 ML VIAL IVP SCH (08:34)
[2016-03-19] MEDS: CETIRIZINE 10 MG TAB PO SCH (08:34)
[2016-03-19] MEDS: SIMETHICONE 80 MG TAB CHEW PO SCH (08:34)
[2016-03-19] MEDS: MULTIVITAMINS 1 EACH TAB PO SCH (08:34)
[2016-03-19] MEDS: ASPIRIN 81 MG CHEWABLE TAB PO SCH (08:34)
--- NOTE | 2016-03-19 09:16 | PDIAF ---
- Diagnosis Code Status: Full Code - Medication Management Discharge Medications: Medications to Continue on Transfer Aspirin [Aspirin 81mg (*)] 81 mg PO BID 12/19/14 [Last Taken Unknown] Loratadine [Claritin 10 mg] 10 mg PO DAILY 12/19/14 [Last Taken Unknown] Multivitamin [Multi-Day Vitamins] 1 each PO DAILY 12/19/14 [Last Taken Unknown] Simvastatin [Zocor] 20 mg PO HS 12/19/14 [Last Taken Unknown] Cholecalciferol Vit D3 [Vitamin D3 (*)] 2,000 units PO DAILY 03/08/16 [Last Taken Unknown] Dutasteride [Avodart 0.5 MG (*)] 0.5 mg PO HS 03/08/16 [Last Taken Unknown] Simvastatin 20 mg PO HS 03/08/16 [Last Taken Unknown] Tamsulosin HCl [Flomax 0.4 MG (*)] 0.4 mg PO HS 03/08/16 [Last Taken Unknown] Zolpidem Tartrate [Ambien 5MG (*)] 5 - 10 mg PO HS PRN 03/08/16 [Last Taken Unknown] Discharge Medications: Refer to the Discharge Home Medication list for PRN reason. - Orders Services needed: Home Care, Registered Nurse, Certified Sales [employer], Physical Therapy Home Care Face to Face: I certify that this patient was under my care and that I had the required [id number] encounter meeting the encounter requirements on the discharge day. My findings support the fact that the patient is homebound as defined in CMS Chapter 7 Medicare Benefits Manual 30.1.1, The condition of the patient is such that there exists a normal inability to leave home and consequently, leaving home would require a considerable and taxing effort. Diet Recommendation: cardiac -low fat low salt Diet Texture: Regular Texture Diet - Follow Up Care Current Providers and Referrals: Zohreh Loza MD [Primary Care Provider] - As per Instructions Wil Benoit MD [Medical Doctor] -
--- NOTE | 2016-03-19 13:06 | GDS ---
[f rep st] DISCHARGE SUMMARY DISCHARGE DIAGNOSES: 1. Nonspecific colitis. 2. Leukocytosis. 3. Ileus. 4. Acute kidney injury. 5. Hypokalemia. 6. Benign prostatic hypertrophy. 7. Hyperlipidemia. CONSULTATIONS: Gastroenterology. PROCEDURES: Colonoscopy on 03/08/2016. Nondescript colitis pattern was noted from approximately 30 cm to the distal transverse colon. HISTORY OF PRESENT ILLNESS: Patient is a 75-year-old male with history of hyperlipidemia, who presen tobias to the emergency department with bloody stools. He had a regular meal prior to admission, lunch at the [facility]. After eating, he lost his appetite and had some low-grade subjective fevers. Began having diarrhea Wednesday night. Next day he had nausea, and the diarrhea worsened; they were b loody with bright red blood. He was feeling faint with standing. Denied any chest pain or shortness of breath. He was seen at the [facility] on 03/05/2016, and stool studies d one then were negative. CT abdomen and pelvis was done at that time that revealed colitis. He was e mpirically started on Cipro and Flagyl. Since those antibiotics, the symptoms had not improved. HOSPITAL COURSE BY PROBLEM: 1. Nonspecific colitis: Initially thought to be an infectious etiology. Gastroenterology was consu lted and performed a colonoscopy that did show nonspecific colitis in the transverse colon. Patholog y did not reveal specific etiology. Patient was empirically treated with Solu-Medrol here with impro vement in his symptoms. I spoke with Dr. Benoit, and we agreed to discharge him on a 2-week taper of prednisone. At this time, patient is tolerating normal p.o. diet. 2. Ileus: This warranted NG tube placement. Patient's diet was advanced slowly. He is currently t olerating p.o., passing flatus, and having bowel movements. He has some distention but not tender. No nausea or vomiting. I advised him to advance his diet more slowly than he has been doing here. 3. Elevated lipase: 417 on admission. This is likely secondary to underlying GI process. 4. Leukocytosis: Secondary to steroids. No other infectious symptoms. 5. GREGORIO: This resolved with IV fluids. 6. Hypokalemia: Repleted. 7. BPH: Continue Flomax. 8. Hyperlipidemia: Continue statin. DISPOSITION: Patient is stable for discharge. NEW MEDICATIONS: 1. Prednisone for a 2-week taper. 2. Phenergan. FOLLOWUP: With Dr. Benoit. DIET: Advance slowly. /[id number]/MODL
== END 2016-03-19 12:06 | disposition home or self-care (01) | DRG 392 ==
LOC: OBSVTOIN 20:22 → F2W 21:15 → F3E 03-17 21:56
PROVIDERS: ADMIT Family Medicine; ATTEND Family Medicine
PROC: 0DBM8ZX Excision of Descending Colon, Via Natural or Artificial Opening Endoscopic, Diagnostic (ICD-10-PCS; principal; 2016-03-17 07:15)
DX: K52.9 Noninfective gastroenteritis and colitis, unspecified (principal); K56.7 Ileus, unspecified; N17.9 Acute kidney failure, unspecified; N40.0 Benign prostatic hyperplasia without lower urinary tract symptoms; E87.6 Hypokalemia; E78.5 Hyperlipidemia, unspecified; E86.0 Dehydration
CPT/HCPCS: 97116-GP; 97162-GP; 97530-GP; G8978-GP-CJ; G8979-GP-CI; J1170; J1650; J1956; J2405; J2550; J2704; Q9967

== ENCOUNTER → 2016-05-07 | Outpatient (CLI) | payer OTHER | LOC: BMCIMAGING 13:08 | PROVIDERS: ATTEND Internal Medicine | DX: N63 Unspecified lump in breast (principal) | CPT/HCPCS: 76641; G0204 ==